=== PATIENT | male | born 1960 | race Caucasian/White ===

== ENCOUNTER → 2022-09-15 | Outpatient (CLI) | payer BC ==
--- NOTE | 2022-09-15 09:09 | US ---
EXAMINATION TYPE: US liver DATE OF EXAM: 09/15/2022 COMPARISON: NONE CLINICAL INDICATION: Male, 62 years old with history of R74.01 ELEVATED LIVER TRANSAMINASE LEVELS; Ab normal labs. No pain. TECHNIQUE: Multiple sonographic images of the right upper quadrant are obtained. FINDINGS: EXAM MEASUREMENTS: Liver Length: 20.1 cm Gallbladder Wall: 0.2 cm CBD: 0.4 cm Right Kidney: 11.5 x 5.0 x 4.6 cm Pancreas: Echogenic in appearance. Tail and head obscured by bowel gas. Liver: Enlarged in size. Slightly heterogenous. Gallbladder: wnl Evidence for sonographic Flower's sign: neg CBD: wnl Right Kidney: Two lower lateral pole anechoic lesions, 1= 2.0 x 2.3 x 2.1 cm and 2= 2.7 x 2.8 x 2.9 cm. IMPRESSION: Hepatic steatosis. 1. Right renal cysts.
== END | disposition home or self-care (01) ==
LOC: RADUSWWP 08:26
PROVIDERS: ATTEND Family Medicine
DX: N28.1 Cyst of kidney, acquired (principal); K76.0 Fatty (change of) liver, not elsewhere classified; R74.01 Elevation of levels of liver transaminase levels
CPT/HCPCS: 76705

== ENCOUNTER → 2023-04-02 | Outpatient (CLI) | payer BC ==
--- NOTE | 2023-04-02 12:30 | MR ---
EXAMINATION TYPE: MR prostate wo con DATE OF EXAM: 04/02/2023 7:42 AM COMPARISON: None. CLINICAL INDICATION:Male, 63 years old with history of R97.20 ELEVATED PSA, Prostate Protocol WO; Sanna vated PSA TECHNIQUE: Multi-planar, multi-sequence imaging of the pelvis is performed prior to and following the uncomplicated administration of bolus intravenous gadolinium. CONTRAST: Contrast injection was out of service. Interpretive Criteria: PI-RADS v2.1 SERUM PSA: 5.85 no date given. SURGICAL PATHOLOGY: No data available. FINDINGS: Prostatic dimensions: 5.2 x 6.0 x 4.7 cm. Ellipsoid Volume:76.78 (PSA density=0.08 ng/mL/mL) CENTRAL GLAND (Central and Transition Zones/CZ+TZ): Multiple bilateral, heterogenous appearing hypertrophic stromal nodules, without suspicious lesion. M edian lobe hypertrophy with protrusion into the base of the bladder. (PI-RADS 2) PERIPHERAL ZONE (PZ): Bilateral linear, indistinct wedgelike areas of low ADC, and low T2 signal, No evidence of masslike a bnormality, or localized perfusional hypervascularity, to further suggest a focus of clinically signi ficant prostate cancer. (PI-RADS 2) SEMINAL VESICLES (SV): Symmetric and unremarkable. PERIPROSTATIC TISSUES: Unremarkable. LYMPH NODES: No enlarged pelvic lymph node. REMAINING PELVIS: Bladder wall is within normal limits given distention. No abnormal free or organized intrapelvic fluid collection. No pathologic bowel dilation or mural thickening. Bilateral fat containing inguinal hernias. OSSEOUS STRUCTURES: No suspicious osseous abnormality. IMPRESSION: 1. No specific features for high-risk prostate cancer. Maximum PI-RADS score: 2. 2. Moderate BPH, estimated gland volume 76.78 mL.
== END | disposition home or self-care (01) ==
LOC: RADMRIMAIN 06:45
PROVIDERS: ATTEND Urology
DX: N40.0 Benign prostatic hyperplasia without lower urinary tract symptoms (principal); R97.20 Elevated prostate specific antigen [PSA]
CPT/HCPCS: 72195

== ENCOUNTER 2024-02-23 02:43 | Inpatient (IN) | payer BC ==
[2024-02-23 03:44] LABS: Basophils # (A) 0.1 k/uL (0-0.2); Basophils % (A) 1 %; Eosinophils # (A) 0.2 k/uL (0-0.7); Eosinophils % (A) 4 %; HCT 46.2 % (39.0-53.0); HGB 14.9 gm/dL (13.0-17.5); Lymphocytes # (A) 1.9 k/uL (1.0-4.8); Lymphocytes % (A) 31 %; MCH 34.5 pg (25.0-35.0); MCHC 32.3 g/dL (31.0-37.0); MCV 106.9 fL (80.0-100.0); Macrocytosis Moderate; Mean Platelet Volume 8.6; Monocytes # (A) 0.4 k/uL (0-1.0); Monocytes % (A) 6 %; Neutrophils # (A) 3.4 k/uL (1.3-7.7); Neutrophils % (A) 56 %; Platelet Count 150 k/uL (150-450); RBC 4.33 m/uL (4.30-5.90); RDW 13.3 % (11.5-15.5); WBC 6.1 k/uL (3.8-10.6)
--- NOTE | 2024-02-23 03:49 | ED ---
Chest Pain HPI - General Chief Complaint: Chest Pain Stated Complaint: Chest Pain Time Seen by Provider: 02/23/24 02:50 Source: patient, EMS Mode of arrival: EMS Limitations: no limitations - History of Present Illness Initial Comments: 64-year-old male presents emergency department as a transfer from [facility]. He went into the emergency department reporting chest pain. States that for the past couple of weeks he has had intermittent chest pain. States that the pain comes on when he is exerting himself. Today the patient was carrying some groceries into the house when he had the pain. States that it radiated to his back and shoulders. He took 4 full dose aspirins and states that after half hour the pain went away. He did have a friend drive him to the hospital. He denies history of coronary disease. No history of DVT or PE. No calf pain or swelling. No fevers, chills or cough. He has previously seen a shipping agent however has never had any type of workup. Patient was pain-free at the outside facility. They did give him a shot of Lovenox and patient was transferred here for cardiology evaluation. No other alleviating, precipitating or modifying factors - Related Data Allergies Allergy/AdvReac Type Severity Reaction Status Date / Time No Known Allergies Allergy Verified 02/23/24 03:00 Review of Systems ROS Statement: Those systems with pertinent positive or pertinent negative responses have been documented in the HPI. ROS Other: All systems not noted in ROS Statement are negative. Past Medical History Past Medical History: Hypertension History of Any Multi-Drug Resistant Organisms: None Reported Past Surgical History: Hernia Repair Past Psychological History: No Psychological Hx Reported Smoking Status: Current every day smoker Past Alcohol Use History: Daily Past Drug Use History: None Reported General Exam Limitations: no limitations General appearance: alert, in no apparent distress Head exam: Present: atraumatic, normocephalic, normal inspection Eye exam: Present: normal appearance, PERRL, EOMI. Absent: scleral icterus, conjunctival injection, periorbital swelling ENT exam: Present: normal exam, mucous membranes moist Neck exam: Present: normal inspection. Absent: tenderness, meningismus, ly mphadenopathy Respiratory exam: Present: normal lung sounds bilaterally. Absent: respiratory distress, wheezes, rales, rhonchi, stridor Cardiovascular Exam: Present: regular rate, normal rhythm, normal heart sounds. Absent: systolic murmur, diastolic murmur, rubs, gallop, clicks GI/Abdominal exam: Present: soft, normal bowel sounds. Absent: distended, tenderness, guarding, rebound, rigid Extremities exam: Present: normal inspection, full ROM, normal capillary refill. Absent: tenderness, pedal edema, joint swelling, calf tenderness Back exam: Present: normal inspection Neurological exam: Present: alert, oriented X3, CN II-XII intact Psychiatric exam: Present: normal affect, normal mood Skin exam: Present: warm, dry, intact, normal color. Absent: rash Course Vital Signs 02/23/24 02/23/24 02:47 04:02 Temperature 97.7 F Pulse Rate 71 55 L Respiratory 18 18 Rate Blood Pressure 166/111 160/92 O2 Sat by Pulse 98 98 Oximetry Chest Pain MDM - MDM Was pt. sent in by a medical professional or institution (, PA, [employer], urgent care, hospital, or long-term...) When possible be specific @ -Patient sent from [facility] Did you speak to anyone other than the patient for history (EMS, parent, family, police, friend...)? What history was obtained from this source @ -I spoke with the transferring physician Did you review nursing and triage notes (agree or disagree)? Why? @ -I reviewed and agree with nursing and triage notes Were old charts reviewed (outside hosp., previous admission, EMS record, old EKG, old radiological studies, urgent care reports/EKG's, long-term records)? Report findings @ -I reviewed the chart from [facility] Differential Diagnosis (chest pain, altered mental status, abdominal pain women, abdominal pain men, vaginal bleeding, weakness, fever, dyspnea, syncope, headache, dizziness, GI bleed, back pain, seizure, CVA, palpatations, mental health, musculoskeletal)? @ -Differential Chest Pain: Stable Angina, Unstable Angina, STEMI, NSTEMI Aortic Dissection, Pneumothorax, Musculoskeletal, Esophageal Spasm GERD, Cholecystitis, Pancreatitis, Zoster, this is not meant to be an all-inclusive list. EKG interpreted by me (3pts min.). @ -Yes and demonstrates sinus bradycardia with a rate of 58. NV interval 153. QRS 115. QTc of 413. No acute ST segment elevation or depression X-rays interpreted by me (1pt min.). @ -None done CT interpreted by me (1pt min.). @ -None done U/S interpreted by me (1pt. min.). @ -None done What testing was considered but not performed or refused? (CT, X-rays, U/S, labs)? Why? @ -None What meds were considered but not given or refused? Why? @ -None Did you discuss the management of the patient with other professionals (professionals i.e. DrTamika, PA, [employer], lab, RT, psych nurse, licensed clinical social worker, hatch tender, teacher, sustainability officer, behavioral health case manager)? Give summary @ -Spoke with Dr. Shafer for the admission Was smoking cessation discussed for >3mins.? @ -No Was critical care preformed (if so, how long)? @ -No Were there social determinants of health that impacted care today? How? (Homelessness, low income, unemployed, alcoholism, drug addiction, transportation, low edu. Level, literacy, decrease access to med. care, retirement, rehab)? @ -No Was there de-escalation of care discussed even if they declined (Discuss DNR or withdrawal of care, Hospice)? DNR status @ -No What co-morbidities impacted this encounter? (DM, HTN, Smoking, COPD, CAD, Cancer, CVA, ARF, Chemo, Hep., AIDS, mental health diagnosis, sleep apnea, morbid obesity)? @ -Hypertension Was patient admitted / discharged? Hospital course, mention meds given and route, prescriptions, significant lab abnormalities, going to OR and other pertinent info. @ -Upon arrival patient seen and evaluated in bed 2. Thorough history and physical exam was performed. IV access had already been accessed. I did review the patient's chart. Repeat Trope was performed which was negative. Patient will be admitted for serial troponins, echo and cardiology consultation. Spoke with Dr. Shafer for the admission Undiagnosed new problem with uncertain prognosis? @ -yes Drug Therapy requiring intensive monitoring for toxicity (Heparin, Nitro, Insulin, Cardizem)? @ -No Were any procedures done? @ -No Diagnosis/symptom? @ -Acute chest pain, possible ACS Acute, or Chronic, or Acute on Chronic? @ -Acute Uncomplicated (without systemic symptoms) or Complicated (systemic symptoms)? @ -Complicated Side effects of treatment? @ -No Exacerbation, Progression, or Severe Exacerbation? @ -No Poses a threat to life or bodily function? How? (Chest pain, [place], [place], pneumonia, PE, COPD, DKA, ARF, appy, cholecystitis, CVA, Diverticulitis, Homicidal, Suicidal, threat to staff... and all critical care pts) @ -Yes as patient has possible acute coronary syndrome Disposition Clinical Impression: Chest pain Disposition: ADMITTED IP TO THIS [facility] Condition: Stable Is patient prescribed a controlled substance at d/c from ED?: No Referrals: Birgit Conde MD [Primary Care Provider] - 1-2 days Time of Disposition: 04:15 Decision to Admit Reason: Admit from EC Decision Date: 02/23/24 Decision Time: 04:15
[2024-02-23 03:57] LABS: Partial Thromboplastin Time 28.3 sec (22.0-30.0); Prothrombin Time 10.7 sec (10.0-12.5)
[2024-02-23 04:04] LABS: ALT 86 U/L (4-49); AST 78 U/L (17-59); African American GFR (CKD) 86 (>60 ml/min/1.73 sqM); Albumin 4.1 g/dL (3.5-5.0); Alkaline Phosphatase 50 U/L (38-126); Anion Gap 8 mmol/L; Blood Urea Nitrogen 19 mg/dL (9-20); Calcium 9.2 mg/dL (8.4-10.2); Carbon Dioxide 18 mmol/L (22-30); Chloride 115 mmol/L (98-107); Glucose 89 mg/dL (74-99); Non-African American GFR(CKD) 74 (>60 ml/min/1.73 sqM); Sodium 141 mmol/L (137-145); Total Bilirubin 0.6 mg/dL (0.2-1.3); Total Protein 7.2 g/dL (6.3-8.2)
[2024-02-23] MEDS ORDERED: NALOXONE 0.4 MG/ML 1 ML VIAL IV PRN (04:16)
[2024-02-23] MEDS ORDERED: ALPRAZolam 0.25 MG TAB PO PRN (08:24)
[2024-02-23] MEDS ORDERED: NITROGLYCERIN SL TABS 0.4 MG TAB SUBLINGUAL PRN (08:24)
[2024-02-23] MEDS ORDERED: ALPRAZolam 0.5 MG TAB PO PRN (08:24)
[2024-02-23] MEDS: ASPIRIN 325 MG TAB PO STA (08:38)
[2024-02-23] MEDS: amLODIPine 5 MG TAB PO SCH (08:38)
[2024-02-23] MEDS: lisinopriL 20 MG TAB PO SCH (08:38)
[2024-02-23] MEDS: ATORVASTATIN 80 MG TAB PO STA (08:38)
[2024-02-23] MEDS: NITROGLYCERIN OINT 1 INCH/GM PACKET TOPICAL SCH (08:38)
[2024-02-23] MEDS: ASPIRIN 81 MG PO SCH (08:39)
[2024-02-23] MEDS: SODIUM CHLORIDE 0.9% 1,000 ML in EMPTY BAG 1 BAG IV SCH (08:51)
--- NOTE | 2024-02-23 10:02 | P.CRDCN ---
History of Present Illness History of present illness: HISTORY OF PRESENT ILLNESS: This is a 64-year-old male with a past medical history significant for hypertension and daily alcohol use. Patient used to follow in the office with Dr. Mcgee but has not been seen since 2021. We have been asked to see the patient in consultation for chest pain. Patient examined at the bedside. Patient states yesterday evening he was unpacking groceries when he began to have pain in his arms. He states that he sat down and then developed chest discomfort. He reports that he took some aspirin and had relief of his pain within 15 minutes. He initially presented to [facility] for evaluation and was then transferred to [facility]. Patient states the pain had resolved by the time he presented to the hospital. He denies any further episodes of chest pain or pressure. The patient does report he has been having chest pain on and off for the past month but yesterday it was more severe in intensity. He denies any known history of CAD. He states that his mother had a history of coronary artery disease. He does report smoking cigars. He also reports daily alcohol use and reports drinking approximately 3- 5 drinks a day. Patient's blood pressure was also noted to be elevated with systolics greater than 180. DIAGNOSTICS: - EKG reveals sinus mechanism with ST depression in lead III, V5V6 - Laboratory data: WBC 6.1. Hemoglobin 14.9. Platelet count 150. Sodium 141. Potassium 4.0. BUN 19. Creatinine 1.06. AST 78. ALT 86. Troponin negative x 3 - Current home cardiac medications include lisinopril 10 mg daily REVIEW OF SYSTEMS: At the time of my exam: CONSTITUTIONAL: Denies fever or chills. HEENT: Denies blurred vision, vision changes, or eye pain. Denies hemoptysis CARDIOVASCULAR: Denies chest pain. Denies orthopnea. Denies PND. Denies palpitations RESPIRATORY: Denies shortness of breath. GASTROINTESTINAL: Denies abdominal pain. Denies nausea or vomiting. HEMATOLOGIC: Denies bleeding disorders. GENITOURINARY: Denies any blood in urine. SKIN: Denies pruitis. Denies rash. PHYSICAL EXAM: VITAL SIGNS: Reviewed. GENERAL: Well-developed in no acute distress. HEENT: Head is normocephalic. Pupils are equal, round. Sclerae anicteric. Mucous membranes of the mouth are moist. Neck supple. No JVD or thyromegaly LUNGS: Respirations even and unlabored. Lungs essentially clear to auscultation bilaterally. HEART: Regular rate and rhythm. S1 and S2 heard. ABDOMEN: Soft. Nondistended. Nontender. EXTREMITIES: Normal range of motion. No clubbing or cyanosis. Peripheral pulses intact. No lower extremity edema NEUROLOGIC: Awake and alert. Oriented x 3. ASSESSMENT: Unstable angina Hypertensive emergency History of hypertension Mildly elevated LFTs Daily alcohol use Occasional cigar smoking PLAN: Obtain 2D echo to assess cardiac structure and function Resume lisinopril. Increase dosage to 20 mg daily Add amlodipine 5 mg daily Add aspirin 81 mg daily Add atorvastatin 40 mg at night Add Nitropaste 1 inch every 8 hours Continue to monitor blood pressure Abstinence from alcohol recommended Cessation from cigar smoking encouraged. Patient to be referred to [place] quit line upon discharge Patient to undergo cardiac catheterization today with Dr. Mcgee Further recommendations pending patient course Nurse practitioner note has been reviewed by physician. Signing provider agrees with the documented findings, assessment, and plan of care documented by [employer]OR[employer] as a scribe. Past Medical History Past Medical History: Hypertension Additional Past Medical History / Comment(s): patient states he drinks 3-4 glasses of whiskey per day. History of Any Multi-Drug Resistant Organisms: None Reported Past Surgical History: Hernia Repair Past Psychological History: No Psychological Hx Reported Smoking Status: Current every day smoker Past Alcohol Use History: Daily Past Drug Use History: None Reported Medications and Allergies Home Medications Medication Instructions Recorded Confirmed Type Omeprazole [PriLOSEC] 20 mg PO HS 02/23/24 02/23/24 History ePHEDrine sulfate [Bronkaid Max] 25 mg PO Q4H PRN 02/23/24 02/23/24 History lisinopriL [Zestril] 10 mg PO DAILY 02/23/24 02/23/24 History Allergies Allergy/AdvReac Type Severity Reaction Status Date / Time No Known Allergies Allergy Verified 02/23/24 07:21 Physical Exam Vitals: Vital Signs Temp Pulse Pulse Resp BP BP BP 02/23/24 05:27 98.0 F 57 L 18 182/105 155/108 02/23/24 04:02 55 L 18 160/92 02/23/24 02:47 97.7 F 71 18 166/111 Pulse Ox 02/23/24 05:27 97 11/06/24 04:02 98 02/23/24 02:47 98 Intake and Output 02/22/24 02/23/24 02/23/24 22:59 06:59 14:59 Other: # Voids 1 Weight 95.254 kg Results 02/23/24 03:37 02/23/24 03:37 Cardiac Enzymes 02/23/24 02/23/24 02/23/24 Range/Units 03:37 03:37 06:30 AST 78 H (17-59) U/L Troponin I <0.012 0.012 (0.000-0.034) ng/mL Coagulation 02/23/24 Range/Units 03:37 PT 10.7 (10.0-12.5) sec APTT 28.3 (22.0-30.0) sec CBC 02/23/24 Range/Units 03:37 WBC 6.1 (3.8-10.6) k/uL RBC 4.33 (4.30-5.90) m/uL Hgb 14.9 (13.0-17.5) gm/dL Hct 46.2 (39.0-53.0) % Plt Count 150 (150-450) k/uL Comprehensive Metabolic Panel 02/23/24 Range/Units 03:37 Sodium 141 (137-145) mmol/L Potassium 4.0 (3.5-5.1) mmol/L Chloride 115 H (98-107) mmol/L Carbon Dioxide 18 L (22-30) mmol/L BUN 19 (9-20) mg/dL Creatinine 1.06 (0.66-1.25) mg/dL Glucose 89 (74-99) mg/dL Calcium 9.2 (8.4-10.2) mg/dL AST 78 H (17-59) U/L ALT 86 H (4-49) U/L Alkaline Phosphatase 50 (38-126) U/L Total Protein 7.2 (6.3-8.2) g/dL Albumin 4.1 (3.5-5.0) g/dL Current Medications Generic Name Dose Route Start Last Admin Trade Name Freq PRN Reason Stop Dose Admin Naloxone HCl 0.2 mg 02/23/24 04:16 Naloxone 0.4 Mg/Ml 1 Ml Vial IV Q2M PRN Opioid Reversal Intake and Output 02/22/24 02/23/24 02/23/24 22:59 06:59 14:59 Other: # Voids 1 Weight 95.254 kg 02/23/24 03:37 02/23/24 03:37
[2024-02-23] MEDS: amLODIPine 5 MG TAB PO STA (10:47)
--- NOTE | 2024-02-23 12:07 | P.HPIM ---
History of Present Illness H&P Date: 02/23/24 Bob Leong is a 64-year-old male patient of Dr. Raymundo who presented with complaints of chest pain. According to patient yesterday he was unpacking groceries when he began to have pain in his arms and developed chest discomfort patient reports that he took some aspirin and had relief of his pain patient was transferred from [facility] to [facility] for further evaluation patient has a past medical history of hypertension Daily EtOH use 3 to 4 glasses of whiskey a day and current everyday cigar smoker. Patient denies any significant history of coronary artery disease. EKG performed showing sinus bradycardia incomplete right bundle branch block. Lab work revealing troponin 0.012, 0.012 and 0.016. AST 78 ALT 86. White blood cell 6.1, hemoglobin 14.9. Vital signs were reviewed showing temp 97.7, blood pressure 160/92 heart rate 55 and a pulse ox of 98% on room air. At this time patient has been admitted 2D echo has been ordered. Plans for cardiac catheterization today per cardiology at this time patient denies chest pain or shortness of breath. Patient denies nausea v omiting or diarrhea. Patient denies any urinary burning or frequency. Review of Systems Please refer to HPI otherwise unremarkable. Past Medical History Past Medical History: Hypertension Additional Past Medical History / Comment(s): patient states he drinks 3-4 glasses of whiskey per day. History of Any Multi-Drug Resistant Organisms: None Reported Past Surgical History: Hernia Repair Past Psychological History: No Psychological Hx Reported Smoking Status: Current every day smoker Past Alcohol Use History: Daily Past Drug Use History: None Reported Medications and Allergies Home Medications Medication Instructions Recorded Confirmed Type Omeprazole [PriLOSEC] 20 mg PO HS 02/23/24 02/23/24 History ePHEDrine sulfate [Bronkaid Max] 25 mg PO Q4H PRN 02/23/24 02/23/24 History lisinopriL [Zestril] 10 mg PO DAILY 02/23/24 02/23/24 History Allergies Allergy/AdvReac Type Severity Reaction Status Date / Time No Known Allergies Allergy Verified 02/23/24 07:21 Physical Exam Vitals: Vital Signs Temp Pulse Pulse Resp BP BP BP 02/23/24 10:00 163/98 02/23/24 07:00 98.1 F 65 17 150/100 02/23/24 05:27 98.0 F 57 L 18 182/105 155/108 02/23/24 04:02 55 L 18 160/92 02/23/24 02:47 97.7 F 71 18 166/111 Pulse Ox 02/23/24 10:00 02/23/24 07:00 96 02/23/24 05:27 97 02/23/24 04:02 98 02/23/24 02:47 98 Intake and Output 02/22/24 02/23/24 02/23/24 22:59 06:59 14:59 Other: # Voids 1 Weight 95.254 kg Head normocephalic Neck supple Lungs clear to auscultation bilaterally no wheezing or crackles Heart regular rate and rhythm S1-S2, no rub or gallop Abdomen is soft nontender nondistended positive bowel sounds no hepatosplenomegaly Extremities no edema Neuro alert and orientated to 3 Results CBC & Chem 7: 02/23/24 03:37 02/23/24 03:37 Labs: Abnormal Lab Results - Last 24 Hours (Table) 02/23/24 02/23/24 Range/Units 03:37 03:37 MCV 106.9 H (80.0-100.0) fL Chloride 115 H (98-107) mmol/L Carbon Dioxide 18 L (22-30) mmol/L AST 78 H (17-59) U/L ALT 86 H (4-49) U/L Thrombosis Risk Factor Assmnt - Choose All That Apply Any of the Below Risk Factors Present?: Yes Each Factor Represents 1 point: Obesity (BMI >25) Other Risk Factors: No Other congenital or acquired thrombophilia - If yes, enter type in comment: No Thrombosis Risk Factor Assessment Total Risk Factor Score: 1 Thrombosis Risk Factor Assessment Level: Low Risk Assessment and Plan Assessment: 1. Chest pain. Troponins negative plans for cardiac catheterization 2. Hypertensive emergency 3. Daily alcohol use 4. Mildly elevated LFTs likely secondary from EtOH 5. Daily cigar smoking At this time patient has been admitted 2D echo ordered Cardiology services consulted [facility] added for blood pressure control Plans for cardiac catheterization Repeat labs ordered Time with Patient: Greater than 30 (Greater than 60% of the total time spent in counseling and coordination of care)
[2024-02-23 15:19] LABS: Chol/HDL Ratio 3.94 Ratio; LDL Cholesterol,Calculated 119.5 mg/dL (0.0-131.0)
--- NOTE | 2024-02-23 17:06 | CA ---
Transthoracic Echo Report Name: Bob Leong Age: 64 Gender: M : 1960 Exam Date: 02/23/2024 10:43 Exam Location: [facility] Ht (in): 72 Wt (lb): 210 Ordering Physician: Stacie Anne Attending/Referring Phys: [id number], Dayana Glass Frame Fitter Grisel Hernandez RDCS Procedure CPT: Indications: LV function, CP, uncontrolled HTN Cardiac Hx: Technical Quality: Fair Contrast 1: Total Dose (mL): Contrast 2: Total Dose (mL): MEASUREMENTS (Male / Female) Normal Values 2D ECHO LV Diastolic Diameter PLAX 5.6 cm 4.2 - 5.9 / 3.9 - 5.3 cm LV Systolic Diameter PLAX 2.8 cm IVS Diastolic Thickness 1.5 cm 0.6 - 1.0 / 0.6 - 0.9 cm LVPW Diastolic Thickness 1.5 cm 0.6 - 1.0 / 0.6 - 0.9 cm LV Relative Wall Thickness 0.5 RV Internal Dim ED PLAX 3.9 cm LA Volume 66.5 cm??? 18 - 58 / 22 - 52 cm??? LA Volume Index 30.0 cm???/m??? 16 - 28 cm???/m??? M-MODE Aortic Root Diameter MM 3.4 cm LA Systolic Diameter MM 3.9 cm LA Ao Ratio MM 1.2 AV Cusp Separation MM 2.4 cm DOPPLER AV Peak Velocity 191.1 cm/s AV Peak Gradient 14.6 mmHg AV Mean Velocity 129.8 cm/s AV Mean Gradient 7.6 mmHg AV Velocity Time Integral 38.5 cm AI Peak Velocity 492.3 cm/s AI Peak Gradient 97.0 mmHg AI Pressure Half Time 379.3 ms LVOT Peak Velocity 110.0 cm/s LVOT Peak Gradient 4.8 mmHg LVOT Velocity Time Integral 23.1 cm MV Area PHT 4.8 cm??? Mitral E Point Velocity 61.2 cm/s Mitral A Point Velocity 90.7 cm/s Mitral E to A Ratio 0.7 MV Deceleration Time 158.8 ms FINDINGS Left Ventricle Moderately increased left ventricular wall thickness. Left ventricular cavity size normal. Normal left ventricular systolic function with no obvious regional wall motion abnormalities. Left ventricular ejection fraction is estimated at 55-60 %. Grade 1 diastolic dysfunction. Right Ventricle Moderate right ventricular dilatation. Right ventricular systolic pressure within normal limits. Right Atrium Normal right atrial size. Left Atrium Mildly increased left atrial volume. Mitral Valve Structurally normal mitral valve. No mitral stenosis. Mild mitral regurgitation. Posteriorly directed mitral regurgitation jet. Aortic Valve Trileaflet aortic valve. No aortic stenosis. Mild aortic regurgitation. Tricuspid Valve Structurally normal tricuspid valve. Mild tricuspid regurgitation. Pulmonic Valve Structurally normal pulmonic valve. Pericardium No pericardial effusion. Aorta Normal size aortic root and proximal ascending aorta. CONCLUSIONS Normal LV function Mild mitral regurgitation I'll be dilatation Previewed by: Dr. Sascha Mcgee MD (Electronically Signed) Final Date: 23 February 2024 17:05
[2024-02-23] MEDS: NICOTINE 21MG/24HR PATCH TRANSDERM SCH (20:04)
[2024-02-23] MEDS: PANTOPRAZOLE 40 MG TABLET PO SCH (20:04)
[2024-02-23] MEDS: ATORVASTATIN 40 MG TAB PO SCH (20:04)
[2024-02-24] MEDS: amLODIPine 10 MG TAB PO SCH (05:46)
[2024-02-24 08:35] LABS: Basophils # (A) 0.07 X 10*3/uL (0.00-0.10); Basophils % (A) 1.2 %; Eosinophils # (A) 0.17 X 10*3/uL (0.04-0.35); HCT 42.2 % (39.6-50.0); HGB 14.4 g/dL (13.0-17.0); Lymphocytes # (A) 1.37 X 10*3/uL (0.90-5.00); Lymphocytes % (A) 24.3 %; MCH 34.4 pg (27.0-32.0); MCHC 34.1 g/dL (32.0-37.0); MCV 100.7 FL (80.0-97.0); Mean Platelet Volume 11.7 FL (9.5-12.2); Monocytes # (A) 0.57 X 10*3/uL (0.20-1.00); Monocytes % (A) 10.1 %; NRBC Per 100 WBC 0 X 10*3/uL (0.00-0.01); Neutrophils # (A) 3.44 X 10*3/uL (1.80-7.70); Neutrophils % (A) 61.2 %; Platelet Count 169 X 10*3/uL (140-440); RBC 4.19 X 10*6/uL (4.40-5.60); RDW 13.5 % (11.5-14.5); WBC 5.63 X 10*3/uL (4.50-10.00)
[2024-02-24 09:13] LABS: Blood Urea Nitrogen 13.9 mg/dL (9.0-27.0); Calcium 9.2 mg/dL (8.7-10.3); Chloride 106 mmol/L (96-109); Glucose 113 mg/dL (70-110); Potassium 4.2 mmol/L (3.5-5.5); Sodium 139 mmol/L (135-145)
[2024-02-24] MEDS: IV FLUID CONTINUATION 800 ML IV ONE (10:31)
[2024-02-24] MEDS: ASPIRIN 81 MG PO ONE (10:33)
[2024-02-24] MEDS: fentaNYL (PF) 50 MCG/ML 2 ML AMP IVP ONE ×2 (10:35→12:12)
[2024-02-24] MEDS: MIDAZOLAM 2 MG/2 ML VIAL IVP ONE ×2 (10:35→11:41)
[2024-02-24] MEDS: LIDOCAINE 1% INJ 10MG/ML (20 ML MDV) SQ ONE (10:37)
[2024-02-24] MEDS: HEPARIN SODIUM,PORCINE (1 ML) 2,500 UNIT in SODIUM CHLORIDE 0.9% 250 ML IRRIGATION PRN (10:39)
[2024-02-24] MEDS: HEPARIN SODIUM,PORCINE 10,000 UNIT in SODIUM CHLORIDE 0.9% 1,000 ML IRRIGATION PRN (10:39)
[2024-02-24] MEDS: VERAPAMIL SYRINGE (5 MG/10 ML) INTRAARTER ONE ×2 (10:43→11:22)
[2024-02-24] MEDS: HEPARIN SODIUM 1,000 UN/ML (10ML VL) IV ONE (10:46)
[2024-02-24] MEDS: IOPAMIDOL-370 100ML BTL INJ ONE ×3 (11:04→12:18)
[2024-02-24] MEDS: CLOPIDOGREL 75 MG TAB PO ONE (11:19)
[2024-02-24] MEDS ORDERED: NITROGLYCERIN SL TABS 0.4 MG TAB SUBLINGUAL PRN (12:29)
[2024-02-24] MEDS ORDERED: MAG HYDROX/AL HYDROX/SIMETH 30 ML CUP PO PRN (12:29)
[2024-02-24] MEDS ORDERED: ZOLPIDEM 5 MG TAB PO PRN (12:29)
[2024-02-24] MEDS ORDERED: ATROPINE SULFATE 0.1 MG/ML 10ML SYRINGE IV PRN (12:29)
[2024-02-24] MEDS ORDERED: RX INFO: IV CONTRAST WAS GIVEN 1 EACH MISC MISCELLANE PRN (12:29)
--- NOTE | 2024-02-24 12:38 | P.CARDCATH ---
Date of Procedure: 02/24/24 Description of Procedure: PERCUTANEOUS TRANSLUMINAL CORONARY ANGIOPLASTY CLINICAL INFORMATION: The patient is a 64-year-old male with known history of hypertension and chronic tobacco use who presented with symptoms of exertional chest discomfort, he underwent coronary angiography by Dr. Mcgee and was found to have severe obstructive disease involving the mid RCA and proximal LAD. Recommendations were made regarding angioplasty and stenting. The procedure as well as the risks and the complications were discussed with the patient who was in full understanding and agreement. PROCEDURE: A 6 Ghanaian AL 0.75 guiding catheter was introduced into the system. After cannulating the right coronary ostium, a 0.014 BMW J-wire was advanced across the lesion and positioned distally. Following that a 3.0 x 12 mm trek balloon was advanced and inflated at 8 atmosphere. After removing the balloon a eHarmony eye IVUS catheter was advanced and images showed significant stenosis with no significant calcifications in the distal landing zone of 4.5 mm in diameter. Following that a 4.0 x 18 mm Xience stent was deployed. It was dilated at 16 marge. After removing the balloon repeat IVUS imaging was performed and subsequently a 5.0 x 12 mm NC trek balloon was advanced and 2 inflations at 10 marge were done. After removing the balloon and the wire images were obtained and revealed stable successful stenting. Subsequently the guiding catheter and guidewire were removed and a 6 Ghanaian CLS 3.5 guiding catheter was introduced in the left main was cannulated. The 0.014 BMW J-wire was advanced into the diagonal branch. Subsequently a 3.0 x 12 mm trek balloon was advanced and 2 inflations at 8 marge were done. IVUS imaging was performed and revealed a distal landing zone of 4 mm in diameter. After removing the balloon a 4.0 x 23 mm Xience luis point stent was deployed, dilated at 16 marge. After removing the balloon repeat IVUS imaging was performed and subsequently a 4.5 x 15 mm NC trek balloon was advanced and 2 inflations at 10 marge were done. After the last inflation, after appropriate wait, the balloon and the guidewire were withdrawn back into the guiding catheter. Images were obtained and repeated. Those images reveal stable successful stenting. At that point, the guiding catheter, the balloon, and guidewire were removed. The sheath was removed. Hemostasis was obtained with deployment of a TR band. There were no immediate complications. The patient was returned to the room in stable condition. Of note, the patient received additional 6000 units of heparin as well as Plavix. His ACT was followed. There was no immediate complications. He had EKG changes that resolved at the end of the procedure and had chest discomfort that improved. RESULTS: Successful stenting of the mid RCA with reduction of stenosis from 95% to less than 5% with IVUS imaging and REBEKAH-3 flow Successful stenting of the proximal LAD with reduction of stenosis from 95% to less than 5% with IVUS imaging and REBEKAH-3 flow. RECOMMENDATIONS: The patient will continue, clopidogrel in addition to aggressive coronary risks modifications, attempting to maintain LDL below 70 mg/dL. He will be referred to [place] [facility] line. The findings and recommendations were discussed with the patient and he is in full understanding and agreement. Duration of sedation: 57 minutes
[2024-02-24] MEDS: SODIUM CHLORIDE 0.9% 1,000 ML in EMPTY BAG 1 BAG IV SCH (12:47)
[2024-02-24] MEDS: METOPROLOL TARTRATE 25 MG TAB PO SCH (13:25)
[2024-02-24] MEDS: lisinopriL 10 MG TAB PO STA (13:25)
--- NOTE | 2024-02-24 13:37 | P.PN ---
Subjective Progress Note Date: 02/24/24 Bob Leong is a 64-year-old male patient of Dr. Raymundo who presented with complaints of chest pain. According to patient yesterday he was unpacking groceries when he began to have pain in his arms and developed chest discomfort patient reports that he took some aspirin and had relief of his pain patient was transferred from [facility] to [facility] for further evaluation patient has a past medical history of hypertension Daily EtOH use 3 to 4 glasses of whiskey a day and current everyday cigar smoker. Patient denies any significant history of coronary artery disease. EKG performed showing sinus bradycardia incomplete right bundle branch block. Lab work revealing troponin 0.012, 0.012 and 0.016. AST 78 ALT 86. White blood cell 6.1, hemoglobin 14.9. Vital signs were reviewed showing temp 97.7, blood pressure 160/92 heart rate 55 and a pulse ox of 98% on room air. At this time patient has been admitted 2D echo has been ordered. Plans for cardiac catheterization today per cardiology at this time patient denies chest pain or shortness of breath. Patient denies nausea vomit ing or diarrhea. Patient denies any urinary burning or frequency. On 02/24/2024 patient was seen and examined on the medical floor he is alert and oriented x 3 in no apparent distress there is no new episodes of chest pain no shortness of breath no cough no nausea or vomiting no abdominal pain no diarrhea no urinary symptoms, patient is scheduled to have cardiac catheterization today. Objective - Vital Signs Vital signs: Vital Signs Temp 98.1 F 02/24/24 07:00 Pulse 67 02/24/24 07:44 Resp 15 02/24/24 07:00 BP 140/97 02/24/24 07:44 Pulse Ox 96 02/24/24 07:44 FiO2 Intake & Output 02/23/24 02/24/24 02/24/24 18:59 06:59 18:59 Intake Total 118 0 Balance 118 0 Intake: Oral 118 0 Other: # Voids 6 # Bowel Movements 2 - Exam Head normocephalic Neck supple Lungs clear to auscultation bilaterally no wheezing or crackles Heart regular rate and rhythm S1-S2, no rub or gallop Abdomen is soft nontender nondistended positive bowel sounds no hepatosplenomegaly Extremities no edema Neuro alert and orientated to 3 - Labs CBC & Chem 7: 02/24/24 05:21 02/24/24 05:21 Labs: Abnormal Lab Results - Last 24 Hours (Table) 02/24/24 Range/Units 05:21 RBC 4.19 L (4.40-5.60) X 10*6/uL MCV 100.7 H (80.0-97.0) FL MCH 34.4 H (27.0-32.0) pg Assessment and Plan Assessment: 1. Chest pain. Troponins negative plans for cardiac catheterization, today. 2. Hypertensive emergency 3. Daily alcohol use 4. Mildly elevated LFTs likely secondary from EtOH 5. Daily cigar smoking At this time patient has been admitted 2D echo ordered Cardiology services consulted [facility] added for blood pressure control Plans for cardiac catheterization Repeat labs ordered
[2024-02-24] MEDS: ACETAMINOPHEN TAB 325 MG TAB PO PRN (16:55)
[2024-02-24] MEDS: lisinopriL 20 MG TAB PO SCH (20:54)
--- NOTE | 2024-02-24 22:09 | CC ---
CARDIAC CATHETERIZATION REPORT INDICATION: Unstable angina. PROCEDURE NOTE: After obtaining informed consent, left heart catheterization and coronary angiogram were performed via the right radial artery using standard Deepti catheters. The patient tolerated the procedure well without any obvious immediate complications. The patient received moderate conscious sedation. Total sedation time was 23 minutes. Right radial artery access was obtained using Seldinger technique, 6-Danish sheath was placed. Catheters and wires were floated into the ascending aorta under fluoroscopic guidance. The patient received verapamil and heparin per protocol. FINDINGS: 1. HEMODYNAMICS: Left ventricular end-diastolic pressure is 8 mm. There is no significant gradient across the aortic valve. 2. LEFT VENTRICULOGRAM: Left ventriculogram is not performed. 3. ANGIOGRAPHIC DATA: a.Right coronary artery: Right coronary artery is a large dominant vessel that shows a focal 95% stenosis in the mid RCA. b.Left main coronary artery is a normal-sized vessel and is free of stenosis. Divides into left anterior descending coronary artery and circumflex coronary artery. c. LAD shows a focal 90% stenosis in the proximal LAD. d.Circumflex coronary artery is a nondominant vessel that shows mild nonobstructive disease involving the ostial portion of the OM branch. CONCLUSIONS: Severe two-vessel coronary artery disease as described above. PLAN: I reviewed angiographic data with Dr. Montejo, the on-call photography professor who will proceed with angioplasty and stent placement of these vessels. MMODL / IJN: [id number] /
[2024-02-25 06:50] LABS: African American GFR (CKD) 79 (>60 ml/min/1.73 sqM); Anion Gap 8 mmol/L; Blood Urea Nitrogen 16 mg/dL (9-20); Calcium 9.3 mg/dL (8.4-10.2); Carbon Dioxide 19 mmol/L (22-30); Chloride 108 mmol/L (98-107); Glucose 106 mg/dL (74-99); Non-African American GFR(CKD) 68 (>60 ml/min/1.73 sqM); Potassium 4.3 mmol/L (3.5-5.1); Sodium 135 mmol/L (137-145)
[2024-02-25 07:29] VITALS: BP 132/80; PULSE 61; RESP 20; TEMP 98.4
[2024-02-25] MEDS: ASPIRIN 81 MG PO SCH (09:31)
[2024-02-25] MEDS: CLOPIDOGREL 75 MG TAB PO SCH (09:33)
--- NOTE | 2024-02-25 10:08 | P.DS ---
Providers Date of admission: 02/23/24 13:53 Expected date of discharge: 02/25/24 Attending physician: Blu Shafer Consults: 02/23/24 04:23 Consult Physician Urgent Consulting Provider: Austin Cali Consult Reason/Comments: acute chest pain, possible acs Do you want consulting provider notified?: Yes 02/24/24 12:30 Consult Physician Routine Consulting Provider: Austin Cali Consult Reason/Comments: Post Interventional patient Do you want consulting provider notified?: Already Contacted Primary care physician: iBrgit Conde Hospital Course: Discharge diagnosis 1. Chest pain. Troponins negative plans for cardiac catheterization, today. 2. Hypertensive emergency 3. Daily alcohol use 4. Mildly elevated LFTs likely secondary from EtOH 5. Daily cigar smoking Hospital course Bob Leong is a 64-year-old male patient of Dr. Raymundo who presented with complaints of chest pain. According to patient yesterday he was unpacking groceries when he began to have pain in his arms and developed chest discomfort patient reports that he took some aspirin and had relief of his pain patient was transferred from [facility] to [facility] for further evaluation patient has a past medical history of hypertension Daily EtOH use 3 to 4 glasses of whiskey a day and current everyday cigar smoker. Patient denies any significant history of coronary artery disease. EKG performed showing sinus bradycardia incomplete right bundle branch block. Lab work revealing troponin 0.012, 0.012 and 0.016. AST 78 ALT 86. White blood cell 6.1, hemoglobin 14.9. Vital signs were reviewed showing temp 97.7, blood pressure 160/92 heart rate 55 and a pulse ox of 98% on room air. At this time patient has been admitted 2D echo has been ordered. Plans for cardiac catheterization today per cardiology at this time patient denies chest pain or shortness of breath. Patient denies nausea vomiting or diarrhea. Patient denies any urinary burning or frequency. On 02/24/2024 patient was seen and examined on the medical floor he is alert and oriented x 3 in no apparent distress there is no new episodes of chest pain no shortness of breath no cough no nausea or vomiting no abdominal pain no diarrhea no urinary symptoms, patient is scheduled to have cardiac catheterization today. On 02/25/2024 patient is alert and oriented x 3. Patient underwent cardiac catheterization right radial approach yesterday received 2 stents to the mid RCA and proximal LAD recommendations to continue Plavix and aspirin at this time patient also maintained on statin and started on multiple new blood pressure medications these will be continued upon discharge and patient to follow-up with cardiology and PCP for further management at this time patient denies chest pain or shortness of breath. Patient denies nausea vomiting or diarrhea. Patient denies any urinary burning or frequency Patient Condition at Discharge: Stable Plan - Discharge Summary Discharge Rx Participant: No New Discharge Prescriptions: New Aspirin 81 mg PO DAILY 30 Days #30 tab Metoprolol Tartrate [Lopressor] 25 mg PO BID 30 Days #60 tab Clopidogrel [Plavix] 75 mg PO DAILY 30 Days #30 tab Nicotine 21Mg/24Hr Patch [Habitrol] 1 patch TRANSDERM HS 30 Days #30 patch Atorvastatin [Lipitor] 40 mg PO HS 30 Days #30 tab amLODIPine [Norvasc] 10 mg PO DAILY 30 Days #30 tab lisinopriL [Zestril] 20 mg PO BID 30 Days #60 tab Continue ePHEDrine sulfate [Bronkaid Max] 25 mg PO Q4H PRN PRN Reason: ASTHMA Omeprazole [PriLOSEC] 20 mg PO HS Discontinued lisinopriL [Zestril] 10 mg PO DAILY Discharge Medication List Omeprazole [PriLOSEC] 20 mg PO HS 02/23/24 [History] ePHEDrine sulfate [Bronkaid Max] 25 mg PO Q4H PRN 02/23/24 [History] Aspirin 81 mg PO DAILY 30 Days #30 tab 02/25/24 [Rx] Atorvastatin [Lipitor] 40 mg PO HS 30 Days #30 tab 02/25/24 [Rx] Clopidogrel [Plavix] 75 mg PO DAILY 30 Days #30 tab 02/25/24 [Rx] Metoprolol Tartrate [Lopressor] 25 mg PO BID 30 Days #60 tab 02/25/24 [Rx] Nicotine 21Mg/24Hr Patch [Habitrol] 1 patch TRANSDERM HS 30 Days #30 patch 02/25/24 [Rx] amLODIPine [Norvasc] 10 mg PO DAILY 30 Days #30 tab 02/25/24 [Rx] lisinopriL [Zestril] 20 mg PO BID 30 Days #60 tab 02/25/24 [Rx] Follow up Appointment(s)/Referral(s): Birgit Conde MD [Primary Care Provider] - 1-2 days Sascha Mcgee MD [STAFF PHYSICIAN] - 1 Week Activity/Diet/Wound Care/Special Instructions: activity as tolerated diet heart healthy Discharge Disposition: HOME SELF-CARE
== END 2024-02-25 11:15 | disposition home or self-care (01) | DRG 322 ==
LOC: EC 02:43 → 6NMEDSUR 04:16 → OBSVTOIN 13:53
PROVIDERS: ADMIT Internal Medicine; ATTEND Internal Medicine
PROC: 027034Z Dilation of Coronary Artery, One Artery with Drug-eluting Intraluminal Device, Percutaneous Approach (ICD-10-PCS; principal; 2024-02-24 07:30)
PROC: 4A023N7 Measurement of Cardiac Sampling and Pressure, Left Heart, Percutaneous Approach (ICD-10-PCS; 2024-02-24 07:30)
PROC: B2111ZZ Fluoroscopy of Multiple Coronary Arteries using Low Osmolar Contrast (ICD-10-PCS; 2024-02-24 07:30)
PROC: B240ZZ3 Ultrasonography of Single Coronary Artery, Intravascular (ICD-10-PCS; 2024-02-24 07:30)
DX: I25.110 Atherosclerotic heart disease of native coronary artery with unstable angina pectoris (principal); I16.1 Hypertensive emergency; I10 Essential (primary) hypertension; F17.290 Nicotine dependence, other tobacco product, uncomplicated; Z79.02 Long term (current) use of antithrombotics/antiplatelets; Z79.899 Other long term (current) drug therapy
CPT/HCPCS: 36415; 80048; 80053; 80061; 83036; 84484; 85025; 85610; 85730; 92978; 92979; 93005; 93306; 93458; 99285